=== PATIENT | female | born 1990 | race Two or more races ===

== ENCOUNTER 2016-09-15 19:18 | Emergency (ER) | payer SELFPAY ==
[~2016-09-15] VITALS: Ht 152.4 cm; Wt 68.9 kg
[~2016-09-15 19:18] MED LIST: ALPRAZOLAM0.25 MG ORAL; IBUPROFEN600 MG ORAL; ZOFRAN4 MG ORAL
[2016-09-15 19:43] VITALS: BP 139/99
--- NOTE | 2016-09-15 20:07 | Emergency Room Report ---
History of Present Illness General Chief Complaint: Abdominal Pain Source: Patient Present Illness [facility] The patient is a 26-year-old female presenting with 2 complaints including sore throat and cough and also bilateral flank pain with dysuria. The patient first noticed dysuria one week prior and then began to experience flank pain. This pain is described as a 9/10 dull ache and is worse with movement or deep breaths. The patient also admits to a 9/10 lower mid abdominal pain. This pain does not radiate. Describes a dull ache. The patient denies any vaginal discharge, hematuria, fever, chills. The patient describes sore throat as a 5/10 dull ache it does not radiate. Pain worse with swallowing. Patient also admits to a productive cough. The patient denies any other symptoms. The patient denies any sick contacts or recent travel Allergies: Coded Allergies: No Known Allergies (Unverified , 12/01/14) Patient History Past Medical History: see triage record Past Surgical History: none Last Menstrual Period: AUG 30 Now: No Reviewed Nursing Documentation: PMH: Agreed, PSxH: Agreed Review of Systems All Other Systems: negative except mentioned in HPI Physical Exam Vital Signs Date Time Temp Pulse Resp B/P Pulse Ox O2 Delivery O2 Flow Rate FiO2 09/15/16 19:31 98.4 76 18 139/99 93 Room Air Sp02 EP Interpretation: reviewed, normal General Appearance: no apparent distress, alert, GCS 15, non-toxic Head: normocephalic, atraumatic Eyes: bilateral eye PERRL, bilateral eye normal inspection ENT: hearing grossly normal, no angioedema, normal voice, TMs + canals normal, uvula midline, tonsillar swelling, pharyngeal erythema, tonsillar exudate Neck: full range of motion, no bony tend, supple/symm/no masses Respiratory: chest non-tender, lungs clear, normal breath sounds, no wheezing, speaking full sentences Cardiovascular #1: regular rate, rhythm, no edema Gastrointestinal: normal inspection, normal bowel sounds, soft, no mass, no guarding, tenderness - suprapubic Rectal: deferred Genitourinary: normal inspection, CVA tenderness (R), CVA tenderness (L) Musculoskeletal: back normal, gait/station normal, normal range of motion, non- tender Neurologic: alert, oriented x3, responsive, motor strength/tone normal, sensory intact, speech normal Psychiatric: judgement/insight normal, memory normal, mood/affect normal, no suicidal/homicidal ideation Skin: normal color, no rash, warm/dry, well hydrated Medical Decision Making PA Attestation Dr. Eckert is my supervising physician. Patient management was discussed with my supervising physician Diagnostic Impression: Primary Impression: Urinary tract infection Additional Impression: Pharyngitis, acute ER Course The patient is a 26-year-old female presenting with sore throat and dysuria Differential diagnosis include but not limited to pharyngitis, sinusitis, AOM, bronchitis, PNA Differential diagnosis considered but not limited to: UTI, vaginitis, pyelonephritis Physical exam: Vitals within normal limits. Afebrile. No apparent distress HEENT exam: There is bilateral constant edema, erythema, and exudate. Uvula midline. Moist mucous membranes. There is bilateral cervical lymphadenopathy. Lungs are clear to auscultation bilaterally Abdomen is soft. Normal bowel sounds. There is tenderness to palpation over suprapubic region only. Bilateral CVA tenderness Skin is warm and dry. No rash Urinalysis is consistent with urinary tract infection The patient will be discharged home with a prescription for amoxicillin and Macrobid and is given ER precautions. Patient will followup with primary care Laboratory Tests Test 09/15/16 19:50 Urine Color Yellow Urine Appearance Slightly cloudy Urine pH 5 (4.5-8.0) Urine Specific Harris 1.025 (1.005-1.035) Urine Protein Negative (NEGATIVE) Urine Glucose (UA) Negative (NEGATIVE) Urine Ketones Negative (NEGATIVE) Urine Occult Blood Negative (NEGATIVE) Urine Nitrite Negative (NEGATIVE) Urine Bilirubin Negative (NEGATIVE) Urine Urobilinogen Normal MG/DL (0.0-1.0) Urine Leukocyte Esterase 2+ (NEGATIVE) H Urine RBC 2-4 /HPF (0 - 2) H Urine WBC 20-30 /HPF (0 - 2) H Urine Squamous Epithelial Cells Few /LPF (NONE/OCC) Urine Bacteria Moderate /HPF (NONE) H Urine HCG, Qualitative Negative Lab Results Impression There are 20-30 white blood cells with many bacteria Last Vital Signs Date Time Temp Pulse Resp B/P Pulse Ox O2 Delivery O2 Flow Rate FiO2 09/15/16 19:31 98.4 76 18 139/99 93 Room Air Status: improved Disposition: HOME, SELF-CARE Condition: Improved Scripts Nitrofurantoin Monohyd/M-Cryst* (MACROBID 100 MG*) 100 Mg Capsule 100 MG ORAL EVERY 12 HOURS, #14 CAP Prov: JOSE STARK 09/15/16 Amoxicillin* (AMOXIL*) 500 Mg Capsule 500 MG ORAL Q12HR, #20 CAP Prov: JOSE STARK 09/15/16 Referrals: NOT CHOSEN [facility]/,REFERRING (PCP) JOSE STARK Sep 15, 2016 20:07
[2016-09-15 20:47] LABS: KETONES,URINE NEGATIVE (NEGATIVE); LEUKOCYTE ESTERASE ,URINE 2+ (NEGATIVE); NITRITE,URINE NEGATIVE (NEGATIVE); PH,URINE 5 (4.5-8.0); PROTEIN,URINE NEGATIVE (NEGATIVE); UROBILINOGEN,URINE NORMAL MG/DL (0.0-1.0)
[2016-09-15 20:56] LABS: APPEARANCE,URINE SLIGHTLY CLOUDY
[2016-09-15 21:04] LABS: SQUAMOUS EPITHELIAL CELL,UR FEW /LPF (NONE/OCC); WBC,URINE 20-30 /HPF (0 - 2)
[2016-09-15 21:05] LABS: BACTERIA,URINE MODERATE /HPF
[2016-09-15] MEDS ORDERED: NITROFURANTOIN100 M2 ORAL (21:13)
[2016-09-15] MEDS ORDERED: AMOXICILLIN500 MG ORAL (21:13)
[2016-09-15 21:22] VITALS: BP 108/75
== END 2016-09-15 21:23 | disposition home or self-care (01) ==
LOC: EMR 19:48
DX: N39.0 Urinary tract infection, site not specified (principal); J02.9 Acute pharyngitis, unspecified
CPT/HCPCS: 81003; 81025; 87086; 99284

== ENCOUNTER 2020-08-21 20:16 | Emergency (ER) | payer MEDICAID ==
[~2020-08-21] VITALS: Ht 172.7 cm; Wt 68.0 kg
[~2020-08-21 20:16] MED LIST changes: +AMOXICILLIN500 MG ORAL; +NITROFURANTOIN100 M2 ORAL
[2020-08-21 20:38] VITALS: BP 124/80
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
--- NOTE | 2020-08-21 20:53 | NUR ---
ED Nurse Note: urine sent to lab
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
[2020-08-21] MEDS ORDERED: Acetaminophen 500mg (ES) tab ORAL ONE (21:00)
[2020-08-21 21:07] LABS: APPEARANCE,URINE CLEAR; BILIRUBIN, URINE NEGATIVE (NEGATIVE); COLOR,URINE PALE YELLOW; GLUCOSE, URINE (UA) NEGATIVE (NEGATIVE); KETONES,URINE NEGATIVE (NEGATIVE); LEUKOCYTE ESTERASE ,URINE 1+ (NEGATIVE); NITRITE,URINE NEGATIVE (NEGATIVE); PH,URINE 6 (4.5-8.0); PROTEIN,URINE NEGATIVE (NEGATIVE); UROBILINOGEN,URINE NORMAL MG/DL (0.0-1.0)
--- NOTE | 2020-08-21 21:09 | NUR ---
ED Nurse Note: pt resting in bed, no complaints from pt at the moment. Aware waiting for urine sample results.
[2020-08-21] MEDS ORDERED: IBUPROFEN600 M1 ORAL (21:59)
[2020-08-21] MEDS ORDERED: TYLENOL325 MG ORAL (21:59)
[2020-08-21 22:07] VITALS: BP 120/78
--- NOTE | 2020-08-21 22:07 | NUR ---
ER DISCHARGE NOTE: Patient is cleared to be discharged per ERMD, pt is aox4, on room air, with stable vital signs. pt was given dc and paper prescriptions instructions, pt was able to verbalize understanding, pt id band removed without complications. pt is able to ambulate with steady gait. pt took all belongings.
== END 2020-08-21 22:07 | disposition home or self-care (01) ==
LOC: EMR 20:46
DX: S20.221A Contusion of right back wall of thorax, initial encounter (principal); W19.XXXA Unspecified fall, initial encounter; Y92.811 Bus as the place of occurrence of the external cause; Z79.3 Long term (current) use of hormonal contraceptives
CPT/HCPCS: 81001; 81025; Z7502; 99283